=== PATIENT | male | born 1975 | race Caucasian/White ===

== ENCOUNTER 2017-01-11 12:11 | Emergency (ER) | payer MEDICAID ==
[~2017-01-11] VITALS: Ht 172.7 cm; Wt 93.0 kg
[~2017-01-11 12:11] MED LIST: NO MEDS
[2017-01-11] MEDS ORDERED: KETOROLAC 60MG/2ML VIAL IM STA (18:25)
[2017-01-11 19:13] LABS: CLARITY URINE CLEAR (CLEAR); COLOR URINE YELLOW (YELLOW); GLUCOSE URINE 1+ (NEGATIVE); KETONES URINE TRACE (NEGATIVE); LEUKOCYTE ESTERASE URINE NEGATIVE (NEGATIVE); NITRITE URINE NEGATIVE (NEGATIVE); OCCULT BLOOD URINE NEGATIVE (NEGATIVE); PROTEIN URINE NEGATIVE (NEGATIVE); SPECIFIC GRAVITY URINE 1.033 (1.005-1.030)
[2017-01-11 19:32] LABS: *AMPHETAMINES SCREEN URINE PRESUMTIVE POSITIVE (NEGATIVE); *BARBITURATES SCREEN URINE NEGATIVE (NEGATIVE); *BENZODIAZEPINES SCREEN URINE NEGATIVE (NEGATIVE); *COCAINE SCREEN URINE NEGATIVE (NEGATIVE); CANNABINOID URINE SCREEN NEGATIVE (NEGATIVE); METHADONE URINE SCREEN NEGATIVE (NEGATIVE); OPIATES URINE SCREEN NEGATIVE (NEGATIVE); PHENCYCLIDINE URINE SCREEN NEGATIVE (NEGATIVE)
[2017-01-11 20:59] LABS: BASOPHILS % 0.6 % (0.0-2.0); EOSINOPHILS % 1.9 % (0.0-5.0); HEMATOCRIT. 43.2 % (42.0-52.0); HEMOGLOBIN. 14.7 g/dL (14.0-18.0); LYMPHOCYTES % 37.6 % (20.0-50.0); MEAN CORPUSCULAR HEMOGLOBIN 29.4 pg (28.0-32.0); MEAN CORPUSCULAR VOLUME 86.1 fL (80.0-94.0); MEAN PLATELET VOLUME 8.5 fl (7.4-10.4); MONOCYTES % 5.9 % (2.0-8.0); PLATELET 232 x1000/uL (130-400); RED BLOOD CELL COUNT 5.02 mill/uL (4.7-6.1); RED CELL DISTRIBUTION WIDTH 12.9 % (11.6-14.6)
[2017-01-11 21:08] LABS: PROTHROMBIN TIME 10.5 sec (9.4-11.6)
[2017-01-11 21:10] LABS: CARBON DIOXIDE 29 mEq/L (21-32); CHLORIDE 103 mEq/L (98-107)
[2017-01-11 21:38] VITALS: BP 137/88
== END 2017-01-11 21:38 | disposition home or self-care (01) ==
LOC: ER 16:05
DX: N50.82 Scrotal pain (principal); I10 Essential (primary) hypertension; E11.9 Type 2 diabetes mellitus without complications
CPT/HCPCS: 36415; 76870; 80053; 80305; 81001; 83690; 85025; 85610; 93976; 96372; 99285; J1885; Z7610

== ENCOUNTER 2017-07-23 17:44 | Emergency (ER) | payer MEDICAID ==
[~2017-07-23] VITALS: Ht 172.7 cm; Wt 114.0 kg
[2017-07-23] MEDS ORDERED: METF500T4 PO (18:12)
[2017-07-23 19:20] LABS: BASOPHILS % 0.2 % (0.0-2.0); EOSINOPHILS % 1.3 % (0.0-5.0); HEMATOCRIT. 43.6 % (42.0-52.0); HEMOGLOBIN. 14.7 g/dL (14.0-18.0); MEAN CORPUSCULAR HEMOGLOBIN 29.5 pg (28.0-32.0); MEAN CORPUSCULAR VOLUME 87.2 fL (80.0-94.0); MEAN PLATELET VOLUME 8.4 fl (7.4-10.4); MONOCYTES % 6.4 % (2.0-8.0); NEUTROPHILS % 81.1 % (40.0-76.0); PLATELET 256 x1000/uL (130-400); RED CELL DISTRIBUTION WIDTH 13.9 % (11.6-14.6)
[2017-07-23 19:25] LABS: CHLORIDE 102 mEq/L (98-107)
[2017-07-23 19:27] LABS: PROTHROMBIN TIME 10.8 sec (9.4-11.6)
[2017-07-23] MEDS ORDERED: LABETALOL HCL 20MG/4ML CARPUJECT IV ONE (19:45)
[2017-07-23] MEDS ORDERED: DIPHENHYDRAMINE 50MG/ML VIAL IV ONE (19:45)
[2017-07-23] MEDS ORDERED: METHYLPREDNISOLONE SOD SUCC 125 MG/2 ML VIAL IV STA (19:45)
[2017-07-23] MEDS ORDERED: ASPIRIN 81MG TABLET PO ONE (19:45)
[2017-07-23] MEDS ORDERED: NITROGLYCERIN OINT 1GM/INCH UDPKT TD ONE (19:45)
[2017-07-23] MEDS ORDERED: FAMOTIDINE 20MG/2ML VIAL IV ONE (19:45)
[2017-07-23] MEDS ORDERED: SODIUM CHLORIDE 0.9% 1,000 ML IV NR (19:48)
[2017-07-23] MEDS ORDERED: INSULIN REGULAR (HUMULIN R) 300UNITS/3ML IV NR (20:00)
[2017-07-24] MEDS ORDERED: INSULIN REGULAR (HUMULIN R) 300UNITS/3ML IV NR (01:00)
[2017-07-24] MEDS ORDERED: FAMOTIDINE 20MG/2ML VIAL IV NR (01:00)
[2017-07-24] MEDS ORDERED: NITROGLYCERIN OINT 1GM/INCH UDPKT TD NR (01:00)
[2017-07-24] MEDS ORDERED: LABETALOL 5MG/ML SYR 20 MG/4 ML SYRINGE IV NR (01:00)
[2017-07-24] MEDS ORDERED: DIPHENHYDRAMINE 50MG/ML VIAL IV NR (01:00)
[2017-07-24] MEDS ORDERED: ASPIRIN 81MG TABLET PO NR (01:00)
[2017-07-24] MEDS ORDERED: METHYLPREDNISOLONE SOD SUCC 125 MG/2 ML VIAL IV NR (01:00)
[2017-07-24 03:18] VITALS: BP 169/89
== END 2017-07-24 03:20 | disposition home or self-care (01) ==
LOC: ER 18:34
DX: T78.40XA Allergy, unspecified, initial encounter (principal); I10 Essential (primary) hypertension; R53.1 Weakness; R35.8 Other polyuria; R63.1 Polydipsia; E11.9 Type 2 diabetes mellitus without complications; F17.290 Nicotine dependence, other tobacco product, uncomplicated; F15.10 Other stimulant abuse, uncomplicated; Z88.0 Allergy status to penicillin; Z79.84 Long term (current) use of oral hypoglycemic drugs; X58.XXXA Exposure to other specified factors, initial encounter
CPT/HCPCS: 36415; 71045; 80053; 82010; 82962; 84443; 84484; 85025; 85610; 96374; 96375; 99291; 99406; G0482; J1200; J1815; J2930; J3490; Z7610

== ENCOUNTER 2019-04-14 01:06 | Emergency (ER) | payer MEDICAID ==
[~2019-04-14] VITALS: Ht 170.2 cm; Wt 89.9 kg
[~2019-04-14 01:06] MED LIST changes: +METF-414 PO; -NO MEDS
[2019-04-14 01:14] VITALS: BP 156/95
[2019-04-14] MEDS ORDERED: PERMETHRIN 5% CREAM 60GM TOP ONE (02:45)
== END 2019-04-14 02:52 | disposition home or self-care (01) ==
LOC: ER 01:06
DX: B86 Scabies (principal); E11.9 Type 2 diabetes mellitus without complications; I10 Essential (primary) hypertension; Z88.0 Allergy status to penicillin; Z90.49 Acquired absence of other specified parts of digestive tract
CPT/HCPCS: 99282